=== PATIENT | female | born 1985 ===

== ENCOUNTER 2017-02-12 18:41 | Emergency (ER) | payer SELFPAY ==
[2017-02-12 21:29] LABS: Pregnancy Test - Urine (BHCG) Negative (Negative)
[2017-02-12 21:30] LABS: Bilirubin Negative (Negative); Blood, Urine Negative (Negative); Clarity Clear (Clear); Glucose, Urine (Dipstick) Negative (Negative); Leukocyte Negative (Negative); Nitrite Negative (Negative); Pregu Control Background? CLEAR/WHITE (CLR/WHITE); Pregu Control Bar Appear? YES (CONTROL BAR); Protein, Urine (Dipstick) Negative (Neg-Trace); Urobilinogen 0.2 mg/dL (0.2-1.0)
== END 2017-02-12 21:50 | disposition home or self-care (01) ==
LOC: MADERS 18:41
DX: R10.2 Pelvic and perineal pain (principal); R30.0 Dysuria; Z79.899 Other long term (current) drug therapy
CPT/HCPCS: 81003; 81025; 99283

== ENCOUNTER 2017-03-05 17:49 | Emergency (ER) | payer OTHER ==
[2017-03-05 19:06] LABS: Wet Prep Clue Cells Clue Cells Absent (None Seen); Wet Prep Pathologist Review Spermatozoa Absent (None Seen); Wet Prep Spermatozoa 2nd Revie Agree with result (None Seen); Wet Prep Trichomonas Trichomonas Absent (None Seen)
[2017-03-05] MEDS ORDERED: Lidocaine 1% 20 ML MDV ONE (19:32)
[2017-03-05] MEDS ORDERED: cefTRIAXone\\ROCEPHIN 500 MG VIAL ONE (19:32)
[2017-03-05] MEDS ORDERED: Azithromycin 250 MG TAB ONE (19:32)
[2017-03-05] MEDS ORDERED: Fluconazole 100 MG TAB ONE (19:32)
[2017-03-05] MEDS ORDERED: metroNIDAZOLE 250 MG TAB ONE (19:32)
[2017-03-05 19:37] LABS: #Basophils 0.1 thou/uL (0.0-0.2); #Eosinphils 0.3 thou/uL (0.0-0.7); #Lymphocytes 3.2 thou/uL (1.20-3.40); #Monocytes 0.6 thou/uL (0.11-0.59); #Neutrophils 5.3 thou/uL (1.40-6.50); %Basophils 0.7 % (0.0-1.0); %Eosinophils 2.8 % (0.0-10.0); %Lymphocytes 33.8 % (21.0-51.0); %Monocytes 6.4 % (0.0-10.0); %Neutrophils 56.3 % (42.0-75.0); Hemoglobin 13.4 g/dL (12.0-16.0); Mean Corpuscular HGB CONC 32.5 g/dL (32.0-36.0); Mean Corpuscular Volume 86.2 fl (81.0-99.0); Platelet Count 342 thou/uL (130-400); RBC Distribution Width 12.2 % (11.5-14.5); White Blood Cell (WBC) Count 9.5 thou/uL (4.8-10.8)
[2017-03-05 19:37] LABS: Bacteria/HPF 1+ HPF (None Seen); Bilirubin Negative (Negative); Blood, Urine Trace (Negative); Clarity Slightly Cloudy (Clear); Glucose, Urine (Dipstick) Negative (Negative); Leukocyte Trace (Negative); Nitrite Negative (Negative); Protein, Urine (Dipstick) Negative (Neg-Trace); RBC/HPF 0-3 HPF (0-3); Urobilinogen 0.2 mg/dL (0.2-1.0); WBC/HPF 0-3 HPF (0-3); pH, Urine 6.5 (5.0-9.0)
[2017-03-05 19:48] LABS: BHCG - Serum Negative (NEGATIVE); Pregs Control Background? CLEAR/WHITE (CLR/WHITE); Pregs Control Bar Appear? YES (CONTROL BAR)
[2017-03-05 19:49] LABS: Hemoglobin A1c 5.2 % (4.0-6.0)
[2017-03-05 19:51] LABS: ALT (SGPT) 16 U/L (8-55); AST (SGOT) 13 U/L (5-34); Albumin 3.9 g/dL (3.5-5.0); Alkaline Phosphatase 80 U/L (40-150); Anion Gap 12 mmol/L (10-20); BUN (Urea Nitrogen) 16 mg/dL (7.0-18.7); Bilirubin, Total 0.3 mg/dL (0.2-1.2); Calc. Creatinine Clearance 0 mL/min (70-130); Calcium 8.8 mg/dL (7.8-10.44); Carbon Dioxide 27 mmol/L (22-29); Chloride 102 mmol/L (98-107); Estimated GFR-MDRD 86; Globulin 4.3 g/dL (2.4-3.5); Glucose 81 mg/dL (70-105); Potassium 4.1 mmol/L (3.5-5.1); Protein, Total 8.2 g/dL (6.0-8.3); Sodium 137 mmol/L (136-145)
[2017-03-09 21:14] LABS: Chlamydia by PCR Not Detected (NotDetected); GC by PCR Not Detected (NotDetected)
== END 2017-03-05 20:41 | disposition home or self-care (01) ==
LOC: MADERS 17:49
DX: N76.0 Acute vaginitis (principal)
CPT/HCPCS: 36415; 80053; 81001; 83036; 84703; 85025; 86140; 87086; 87210; 87480; 87491; 87510; 87591; 87660; 96372; J0696; J2001

== ENCOUNTER 2017-03-10 17:28 | Emergency (ER) | payer OTHER, SELFPAY | END 2017-03-10 18:15 | disposition home or self-care (01) | LOC: MADERS 17:28 | DX: R10.2 Pelvic and perineal pain (principal); Z79.899 Other long term (current) drug therapy | CPT/HCPCS: 99283 ==